=== PATIENT | male | born 1960 | race Hispanic/Latino ===

== ENCOUNTER 2025-02-22 13:11 | Emergency (ER) | payer MEDICARE ==
[2025-02-22] MEDS: Lidocaine 1% 5 ML VIAL INJECT ONE (13:31)
[2025-02-22] MEDS: Bacitracin Oint 1 GM U/D Packet TOP ONE (13:31)
[2025-02-22] MEDS: Diphtheria,Pertussis(Acell),Tetanus Vaccine 0.5 ML Syringe IM ONE (13:47)
== END 2025-02-22 13:51 | disposition home or self-care (01) ==
LOC: DL.ED 13:11
DX: S60.451A Superficial foreign body of left index finger, initial encounter (principal); I10 Essential (primary) hypertension; Z23 Encounter for immunization; W45.8XXA Other foreign body or object entering through skin, initial encounter; Y93.89 Activity, other specified
CPT/HCPCS: 90471; 90715; 99282; 99283-25; A9270-GY; J2003